=== PATIENT | female | born 1955 | race African-American/Black ===

== ENCOUNTER 2016-09-07 12:52 | Emergency (ER) | payer OTHER ==
[2016-09-07 12:59] VITALS: BP 153/92; PULSE 67; TEMP 97.9; BMI 28.3
[2016-09-07] MEDS ORDERED: IBUPROFEN 400 MG TABLET (FP) PO ONE ×2 (13:27→13:36)
--- NOTE | 2016-09-07 13:38 | PDOC ---
History of Present Illness - General Chief Complaint: Injury Stated Complaint: FALL/ RT [employer] (EMPLOYEE) Time Seen by Provider: 09/07/16 13:00 History Source: Patient - History of Present Illness Occurred: reports: yesterday Upper Extremity Pain Location: right: forearm Method of Injury: reports: fell Past History - Past Medical History Allergies/Adverse Reactions: Allergies Allergy/AdvReac Type Severity Reaction Status Date / Time No Known Allergies Allergy Verified 09/07/16 12:56 Home Medications: Ambulatory Orders Levothyroxine [Synthroid -] 150 mcg PO DAILY 03/11/12 Asthma: No Cardiac Disorders: No CVA: No COPD: No CHF: No Diabetes: No HTN: Yes Hypercholesterolemia: No Thyroid Disease: Yes (hypothyroid) - Psycho/Social/Smoking Cessation Hx Anxiety: No Suicidal Ideation: No Smoking Status: No Smoking History: Never smoked Have you smoked in the past 12 months: No Number of Cigarettes Smoked Daily: 0 Information on smoking cessation initiated: No Hx Alcohol Use: No Drug/Substance Use Hx: No Substance Use Type: None Review of Systems - Review of Systems Musculoskeletal: No: Joint Pain, Joint Swelling *Physical Exam - Vital Signs Last Vital Signs Temp Pulse Resp BP Pulse Ox 97.9 F 67 18 153/92 100 09/07/16 12:56 09/07/16 12:56 09/07/16 12:56 09/07/16 12:56 09/07/16 12:56 - Physical Exam General Appearance: Yes: Appropriately Dressed. No: Apparent Distress HEENT: positive: Normal Voice Neck: positive: Supple Respiratory/Chest: negative: Respiratory Distress Extremity: positive: Other (contusion to postior aspect of R forearm near elbow joint, no joint swelling or deformity, no sig ttp) Integumentary: positive: Dry, Warm Neurologic: positive: Fully Oriented, Alert, Normal Mood/Affect ED Treatment Course - RADIOLOGY Radiology Studies Ordered: Category Date Time Status FOREARM- RIGHT [RAD] Stat Radiology 09/07/16 13:27 Ordered Medical Decision Making - Medical Decision Making 09/07/16 13:41 60-year-old female, no significant history, here with pain and swelling to right forearm, status post injury. Patient states last night while chasing dog , slipped down the last 2 steps, striking her right arm against the floor. Has been using ice with some improvement in swelling. Here for evaluation. Patient well-appearing and stable with minimal contusion to posterior aspect of right forearm. Most likely sprain, doubt fracture, but will check x-ray. Pain control as needed *DC/Admit/Observation/Transfer Diagnosis at time of Disposition: Arm contusion Qualifiers: Encounter type: initial encounter Laterality: right Qualified Code(s): S40.021A - Contusion of right upper arm, initial encounter - Discharge Dispostion Condition at time of disposition: Good - Patient Instructions Printed Discharge Instructions: Contusion Additional Instructions: Your xray was negative for fracture You have an arm sprain/contusion which will heal on its own Take motrin as needed for pain
== END 2016-09-07 13:53 | disposition home or self-care (01) ==
LOC: JERFT 12:52
DX: S40.021A Contusion of right upper arm, initial encounter (principal); E03.9 Hypothyroidism, unspecified; W10.9XXA Fall (on) (from) unspecified stairs and steps, initial encounter; Y93.89 Activity, other specified; Y92.009 Unspecified place in unspecified non-institutional (private) residence as the place of occurrence of the external cause
CPT/HCPCS: 73090-TC-RT; 99281-25

== ENCOUNTER 2023-07-24 10:34 | Emergency (ER) | payer BC ==
[2023-07-24 10:50] VITALS: BP 130/84; PULSE 74; RESP 18; TEMP 98; BMI 32.2
[2023-07-24 12:20] LABS: THROAT:GRP A STREP NOT DETECTED (NOTDETECTED)
== END 2023-07-24 11:57 | disposition home or self-care (01) ==
LOC: JER 10:34
DX: R09.81 Nasal congestion (principal); R05.9 Cough, unspecified; R53.83 Other fatigue; J06.9 Acute upper respiratory infection, unspecified; U07.1 COVID-19
CPT/HCPCS: 0241U-QW; 71046-TC-FY; 87651; 93005; 93010; 99285-25